=== PATIENT | female | born 1990 | race Caucasian/White ===

== ENCOUNTER 2016-08-31 06:40 | Inpatient (IN) | payer MEDICAID ==
[2016-09-03] MEDS ORDERED: TYLENOL #3 DPS1 TAB PO (08:12)
[2016-09-03] MEDS ORDERED: MOTRIN-DPS800 MG PO (08:12)
[2016-09-03] MEDS ORDERED: PRENATAL VIT1 TAB PO (08:12)
== END 2016-09-01 14:35 | disposition home or self-care (01) | DRG 775 ==
DX: O80 Encounter for full-term uncomplicated delivery (principal); Z37.0 Single live birth; Z3A.39 39 weeks gestation of pregnancy